=== PATIENT | male | born 1955 | race Caucasian/White ===

== ENCOUNTER → 2017-01-14 | Outpatient (CLI) | payer BC ==
[~2017-01-14] MED LIST: SYN25 PO
[2017-01-14 09:33] LABS: BASO % 0.2 %; BASO ABS # 0.01 K/uL (0-0.2); COMPLETE YES; EOS % 1.9 %; HEMATOCRIT 44.6 % (42-52); IG% 0.4 %; LYMPH % 17.8 %; LYMPH ABS # 0.84 K/uL (1.2-3.4); MEAN CELL VOLUME 90.7 fL (80-100); MEAN CORPUSCULAR HEMOGLOBIN 31.1 pg (25-34); MEAN CORPUSCULAR HGB CONC 34.3 g/dl (32-36); MEAN PLATELET VOLUME 10.9 fL (7.4-10.4); MONO % 9.9 %; NEUT % 69.8 %; PLATELET COUNT 211 K/uL (130-400); RED BLOOD COUNT 4.92 M/uL (4.7-6.1); WHITE BLOOD COUNT 4.73 K/uL (4.8-10.8)
[2017-01-14 09:53] LABS: BLOOD UREA NITROGEN 21 mg/dl (7-18); BUN/CREATININE RATIO 19.3 (10-20); CALCIUM 9.4 mg/dl (8.5-10.1); CARBON DIOXIDE 30 mmol/L (21-32); CHLORIDE 104 mmol/L (98-107); GLUCOSE 100 mg/dl (70-99); POTASSIUM 4.5 mmol/L (3.5-5.1); SODIUM 141 mmol/L (136-145)
--- NOTE | 2017-01-22 09:51 | CODING QUERY MEDICAL NECESSITY ---
CQSUPPORTING DIAGNOSIS NEEDED A supporting diagnosis is required for the test/procedure performed on this patient in order for us to be reimbursed by the patient's insurance. Please provide a supporting diagnosis for the following test/procedure listed below next to the test name along with your signature. *If there is no additional diagnosis for this patient that would support the following test/procedure please document that below next to the test/procedure. Test(s)/Procedure(s) that require a supporting diagnosis: DOS 01/13/17 PROSTATE SPECIFIC TEST (PSA) QUERY WAS RETURNED WITH SIGNATURE BUT NO DIAGNOSIS FOR PSA TEST Provider Signature: Date: Thank you Berenice [facility] Once completed, please kindly fax back to [phone] For questions please call [phone]
== END | disposition home or self-care (01) ==
LOC: C.LAB1850 08:14
PROVIDERS: ATTEND Dentist Oral and Maxillofacial Pathology
DX: C76.0 Malignant neoplasm of head, face and neck (principal); N40.0 Benign prostatic hyperplasia without lower urinary tract symptoms